=== PATIENT | male | born 1960 | race Caucasian/White ===

== ENCOUNTER 2016-09-08 23:15 | Emergency (ER) | payer MEDICARE, MEDICAID ==
[~2016-09-08] VITALS: Ht 182.9 cm; Wt 120.5 kg
[~2016-09-08 23:15] MED LIST: ALBU8.5H4 IH; ALLO100T PO; AMLO-39 PO; ASP81TEC PO; COZ100 PO; ESCI20TA PO; NIAC1000 PO; OMEP20TA86 PO; PRAM0.252 PO; [UNRECOGNIZED DRUG - CODE] PO
[2016-09-08 23:36] VITALS: BP 120/76; PULSE 61; RESP 16; O2SAT 98
--- NOTE | 2016-09-09 00:55 | ED.REPORT ---
HPI-Extremity Problem Lower Date of Service Sep 09, 2016 ED Provider: Jordi Cannon DO Patient is a 56 year old male with a history of Parkinson's, hypertension and cerebral palsy who presents to the ED complaining of a right knee wound onset a week ago. Associated symptoms include right knee swelling, pain and surrounding erythema. The patient reports that he fell a week ago and his knee is not healing. Patient recently had an X-ray that showed no evidence of a fracture. Nursing Notes Stated Complaint: RT KNEE PAIN Chief Complaint: Extremity Trauma Nursing Notes Reviewed: Yes Allergies: Coded Allergies: aspirin (Verified Adverse Reaction, Mild, Nausea, 12/17/13) niacin (Verified Adverse Reaction, Mild, FLUSHING, 12/17/13) Scheduled Albuterol-Expunged Drug, Do Not Renew! (Albuterol-Expunged Drug, Do Not Renew!) 8.5 Gm Hfa.aer.ad 2 PUFFS IH PRN RESCUE INHALER Allopurinol-Expunged Drug, Do Not Renew! (Allopurinol-Expunged Drug, Do Not Renew!) 100 Mg Tablet 100 MG PO BID AmLODIPine-Expunged Drug, Do Not Renew! (AmLODIPine-Expunged Drug, Do Not Renew! ) 5 Mg Tablet 2.5 MG PO DAILY Aspirin-Expunged Drug, Do Not Renew! (Aspirin EC-Expunged Drug, Do Not Renew!) 81 Mg Tablet 81 MG PO DAILY INSTRUCTED TO STOP Escitalopram-Expunged Drug, Do Not Renew! (Lexapro-Expunged Drug, Do Not Renew! ) 20 Mg Tablet 20 MG PO DAILY Levodopa/Carbidopa-Expunged, Do Not Renew! (Sinemet [id number], Do Not Renew!) 1 Ea Tab 1 EA PO TID Losartan-Expunged Drug, Do Not Renew! (Losartan-Expunged Drug, Do Not Renew!) 100 Mg Tablet 100 MG PO DAILY Niacin-Expunged Drug, Do Not Renew! (Niaspan-Expunged Drug, Do Not Renew!) 1, 000 Mg Tablet.sa 500 MG PO BID Omeprazole-Expunged Drug, Do Not Renew! (Omeprazole-Expunged Drug, Do Not Renew! ) 20 Mg Tablet.dr 20 MG PO DAILY Pramipexole-Expunged Drug, Do Not Renew! (Mirapex-Expunged Drug, Do Not Renew!) 0.25 Mg Tablet 0.25 MG PO TID General Time Seen by MD: 00:55 Chief Complaint Knee injury right Hx Obtained From: Patient Arrived By: Walk-in Onset Occurred: 1 week ago (2 weeks) Symptom Duration: Since onset Caused by: Fall on ground Location: : Knee right Quality: Painful Recent Healthcare: No recent hospitalization, Recent doctor visit Similar Sx Previous: Yes Past Medical History Past Medical History cerebral palsy Parkinson's sleep apnea Reports: Hypertension Past Surgical History eye surgery shoulder surgery foot surgery x2 bunionectomy Reports: Cholecystectomy Smoking History Unknown if Ever Smoker Social History Other Social History: Good social support Ambulatory Status Independent Review of Systems Review of Systems Note: surrounding erythema Constitutional: Denies: Chills, Fever Musculoskeletal: Reports: Extremity pain (right knee), Extremity swelling Skin: Denies Itching, Denies Rash Neurologic: Denies: Numbness, Weakness Complete sys rev & neg: except as marked. Respiratory: Denies: Non-productive cough, Shortness of breath Physical Exam Initial Vital Signs Vital Signs (First) Date Time Temp Pulse Resp B/P Pulse Ox O2 Delivery O2 Flow Rate FiO2 09/08/16 23:36 36.5 61 16 120/76 98 Room Air Initial VS: Reviewed Lower Extremity / Pelvis / MS: Neurologic intact, Vascular intact LOWER EXTREMITIES: surrounding erythema of the anterior upper russo where there is an abrasion Ankle / Foot: Atraumatic, Full range of motion General/Constitutional: Awake, Alert, No acute distress Appearance / Presentation: Positive: Obese Respiratory / Chest: Atraumatic, Breath sounds NL, Breath sounds = bilat, No respiratory distress Cardiovascular: Heart rate NL, Regular rhythm, Heart sounds NL Skin: Atraumatic, Color NL, Warm, Dry Neurologic: Oriented X3, Speech NL, No motor deficits, No sensory deficits Head / Eyes: Atraumatic, Normocephalic, PERRL, EOMI Psychiatric: Affect NL, Mood NL Re-Eval/Medical Decision Med Decision/Clinical Course I suspect cellulitis as the cause to the nonhealing wound. No signs of fracture or FB or abscess. Recent xrays were reported as normal. No lisa tenderness so repeat images not indicated. Course of abx for SSTI Re-Evaluation/Progress #1: Time of Eval: 01:07 Re-Evaluation/Progress Note: Patient was not in the room. Re-Evaluation/Progress #2: Time of Eval: 01:15 Re-Evaluation/Progress Note: Patient was not in the room. Re-Evaluation/Progress #3: Time of Eval: 01:42 Re-Evaluation/Progress Note: Discussed plan for antibiotic treatment and discharge. Patient understands and agrees to plan. All questions were addressed. Counseled Regarding: Diagnosis, Need for follow-up, When/why to return to ED Discharge & Departure Impression: Primary Impression: Cellulitis Site of cellulitis: extremity Site of cellulitis of extremity: lower extremity Laterality: right Qualified Code: L03.115 - Cellulitis of right lower limb Disposition: Home Discharge Condition All VS Reviewed: Yes Condition: Stable Patient Instructions: Cellulitis (ED) Additional Instructions: It appears to be infected. Take Keflex 4x a day for 7 days. Take Bactrim 2x a day for 7 days. You can take 1-2 [place] every 6 hours as needed for severe pain. Do not drink alcohol or drive while taking the pain medication. Do not combine with Acetaminophen. Elevate your leg as much as possible. Keep the wound covered in antibiotic ointment and dressed with a bandage. Follow up with your primary care physician next week. Return to the emergency department if you develop any new or concerning symptoms. Referrals: Alcon Aponte MD (PCP) Scribe Attestation Portions of this note were transcribed by Shala Chawla. I, Dr. Cannon personally performed the history, physical exam and medical decision-making; I reviewed and confirmed the accuracy of the information in the transcribed note. Signed by: Santhosh Hollins, 09/09/16 and 0130 copies to: Alcon Aponte MD, Todd P DO Sep 09, 2016 00:55 Adry Chawla Sep 09, 2016 01:29
[2016-09-09] MEDS ORDERED: Bacitracin Ointment Packet TOPICAL ONE (01:45)
[2016-09-09] MEDS ORDERED: _HYDROcodone/APAP 5-325 mg Tablet PO PRN (01:45)
[2016-09-09] MEDS ORDERED: Trimethoprim-Sulfa 160 mg-800 mg Tablet PO ONE (01:45)
[2016-09-09 02:18] VITALS: BP 128/72; PULSE 62; RESP 16; O2SAT 99
== END 2016-09-09 02:19 | disposition home or self-care (01) ==
LOC: SED 23:15
DX: L03.115 Cellulitis of right lower limb (principal); Z88.8 Allergy status to other drugs, medicaments and biological substances; Z88.6 Allergy status to analgesic agent; I10 Essential (primary) hypertension; G20 Parkinson's disease; G80.9 Cerebral palsy, unspecified; Z91.81 History of falling